=== PATIENT | male | born 1995 | race African-American/Black ===

== ENCOUNTER 2025-03-14 17:16 | Emergency (ER) | payer OTHER, SELFPAY ==
--- NOTE | 2025-03-14 17:22 | ED.GENADULT ---
HPI - General Adult General Chief complaint: Urogenital-Male Stated complaint: STD Source: patient Mode of arrival: ambulatory Limitations: no limitations History of Present Illness HPI narrative: Pt is a 30 y/o male presenting for STI testing. He denies any known exposure. He denies any sx. He states he just wants a 'screening'. NO additional complaints. Related Data Home Medications ?Medication ?Instructions ?Recorded ?Confirmed ?Last Taken ?Type No Home Medications 03/14/25 03/14/25 Unknown History Allergies Allergy/AdvReac Type Severity Reaction Status Date / Time No Known Allergies Allergy Verified 03/14/25 17:29 Review of Systems Review of Systems: CONSTITUTIONAL: Denies body aches, fever, chills, or sweats. EYES: Denies visual changes, redness, or discharge. ENT: Denies rhinorrhea, congestion, sore throat, or otalgia. CARDIOVASCULAR: Denies chest pain, palpitations, or edema. RESPIRATORY: Denies cough or dyspnea. GASTROINTESTINAL: Denies abdominal pain, nausea, vomiting, or diarrhea. GENITOURINARY: Denies dysuria or hematuria. SKIN: Denies rash, itching, or wounds. MUSCULOSKELETAL: Denies back pain, joint pain, or myalgia. NEUROLOGIC: Denies headache, numbness, tingling, or weakness. PSYCH: Denies depression or anxiety. All systems reviewed & are unremarkable except as noted in HPI and below Exam Narrative: GENERAL: Well-appearing, well-nourished, and in no acute distress. HEAD: Normocephalic, atraumatic. EYES: EOMI. No redness or drainage. Conjunctivae normal. ENT: Mucous membranes pink and moist. NECK: Normal AROM. Supple. CHEST: No respiratory distress. HEART: Regular rate EXTREMITIES: Normal range of motion. SKIN: Warm, dry, no rash. Capillary refill normal. Normal skin turgor. NEURO: No focal deficits. Alert and oriented x3. Gait steady. PSYCH: Normal affect. No signs of depression or anxiety. Course Course Emergency Course: Discussed elevated blood pressure readings with patient and advised daily BP monitoring and f/u with PCP if persisting. Level of Care: Express Care Visit Vital Signs Vital signs: Vital Signs Temperature 98.1 F 03/14/25 17:30 Pulse Rate 54 L 03/14/25 17:30 Respiratory Rate 16 03/14/25 17:30 Blood Pressure 143/76 H 03/14/25 17:30 Pulse Oximetry 100 03/14/25 17:30 Temperature 98.1 F 03/14/25 17:30 Pulse Rate 54 L 03/14/25 17:30 Respiratory Rate 16 03/14/25 17:30 Blood Pressure 143/76 H 03/14/25 17:30 Pulse Oximetry 100 03/14/25 17:30 MDM Differential Diagnosis Differential Diagnosis: STI screening. Discharge Plan Discharge Clinical Impression: High risk heterosexual behavior, Elevated blood pressure reading in office without diagnosis of hypertension Patient Disposition: Home Condition: Stable Instructions: Safe Sex Practices (ED) Additional Instructions: Go straight to ER should your symptoms become worse or should any new symptoms develop Patient Language: Luxembourgish Prescriptions: No Action No Home Medications Follow-up/Referrals: PHYSICIAN NOT ON STAFF,NONSTAFF [Primary Care Provider] - 03/15/25 Time of Disposition: 17:28
[2025-03-14 17:30] VITALS: BP 143/76; PULSE 54; RESP 16; TEMP 36.7; O2SAT 100
[2025-03-14 20:43] LABS: Trichomonas Vag PCR NOT DETECTED (NOT DETECTE)
== END 2025-03-14 17:34 | disposition home or self-care (01) ==
PROVIDERS: Emergency Provider Registered Nurse
DX: Z11.3 Encounter for screening for infections with a predominantly sexual mode of transmission (principal); Z72.51 High risk heterosexual behavior; R03.0 Elevated blood-pressure reading, without diagnosis of hypertension
CPT/HCPCS: 87491; 87591; 87661; 99203; G0463